=== PATIENT | female | born 1995 ===

== ENCOUNTER 2017-12-23 12:37 | Emergency (ER) | payer OTHER ==
[2017-12-23 13:15] VITALS: O2SAT 100
[2017-12-23] MEDS ORDERED: Sodium Chloride 0.9% 1,000 ML IV STA (14:18)
--- NOTE | 2017-12-23 14:27 | ED PDOC ---
HPI: Abdomen Time Seen by Provider: 12/23/17 13:53 Chief Complaint (Nursing): Abdominal Pain Chief Complaint (Provider): Abd pain History Per: Patient History/Exam Limitations: no limitations Onset/Duration Of Symptoms: Days (yesterday) Additional Complaint(s): Pt. with left lower abd pain and epigastric pain. Constant. No nausea, vomit, diarrhea, weakness dysuria, vaginal bleeding, back pain. No fever. No cough. No chest pain, dyspnea. Past Medical History Reviewed: Nursing Documentation, Vital Signs Vital Signs: Last Vital Signs Temp 97.6 F 12/23/17 13:12 Pulse 73 12/23/17 13:12 Resp 18 12/23/17 13:12 BP 100/57 L 12/23/17 13:12 Pulse Ox 100 12/23/17 13:12 - Medical History PMH: No Chronic Diseases - Surgical History Surgical History: No Surg Hx - Family History Family History: States: Unknown Family Hx - Allergies Allergies/Adverse Reactions: Allergies Allergy/AdvReac Type Severity Reaction Status Date / Time No Known Allergies Allergy Verified 12/23/17 13:12 Review of Systems ROS Statement: Except As Marked, All Systems Reviewed And Found Negative Gastrointestinal: Positive for: Abdominal Pain Physical Exam - Reviewed Nursing Documentation Reviewed: Yes Vital Signs Reviewed: Yes - Physical Exam Appears: Positive for: Non-toxic, No Acute Distress Head Exam: Positive for: ATRAUMATIC, NORMAL INSPECTION, NORMOCEPHALIC Skin: Positive for: Normal Color, Warm, DRY Eye Exam: Positive for: EOMI, Normal appearance, PERRL ENT: Positive for: Normal ENT Inspection Neck: Positive for: Normal, Painless ROM Cardiovascular/Chest: Positive for: Regular Rate, Rhythm Respiratory: Positive for: CNT, Normal Breath Sounds Gastrointestinal/Abdominal: Positive for: Soft, Tenderness (epigastric, left lower pelvic, mild.) Back: Positive for: Normal Inspection. Negative for: L CVA Tenderness, R CVA Tenderness Extremity: Positive for: Normal ROM Neurologic/Psych: Positive for: Alert, Oriented - Laboratory Results Result Diagrams: 12/23/17 15:40 12/23/17 15:40 - ECG O2 Sat by Pulse Oximetry: 100 - Progress ED Course And Treament: 1528: Pt. is preg. Found out here. Will work up accordingly. 1829: Stable. AAOx3. Pain free. Tolerated PO. Fu with pcp. Disposition - Clinical Impression Clinical Impression: Abdominal pain during - Patient ED Disposition Is Patient to be Admitted: No Counseled Patient/Family Regarding: Studies Performed, Diagnosis, Need For Followup - Disposition Referrals: [facility] [Outside] [facility] [Outside[facility] - 12/24/17 Disposition: Routine/Home Disposition Time: 18:00 Condition: STABLE Additional Instructions: Return if not better in 3 days. Instructions: Threatened Miscarriage Print Language: CHILEAN
[2017-12-23] MEDS ORDERED: Iohexol 240 (50 ml) ONE (15:11)
[2017-12-23] MEDS: Iohexol 240 (50 ml) PO ONE ×2 (15:13→15:27)
[2017-12-23 15:51] LABS: BASO % 0.4 % (0.0-2.0); EOS # 0.1 K/uL (0.0-0.7); EOS % 0.6 % (0.0-4.0); HEMOGLOBIN 12.5 g/dL (12.0-16.0); LYMPH # 2.1 K/uL (1.0-4.3); LYMPH % 23.2 % (20.0-40.0); MEAN CELL VOLUME 90.4 fl (81.0-99.0); MEAN CORPUSCULAR HEMOGLOBIN 29.9 pg (27.0-31.0); MEAN CORPUSCULAR HGB CONC 33.1 g/dL (33.0-37.0); MEAN PLATELET VOLUME 8.2 fl (7.2-11.7); MONO # 0.5 K/uL (0.0-0.8); MONO % 5.5 % (0.0-10.0); NEUT # 6.4 K/uL (1.8-7.0); NEUT % 70.3 % (50.0-75.0); NRBC % 0.1 % (0.0-0.0); RBC 4.17 Mil/uL (3.80-5.20); RED CELL DISTRIBUTION WIDTH 13.9 % (11.5-14.5); WHITE BLOOD COUNT 9.1 K/uL (4.8-10.8)
[2017-12-23 16:01] LABS: SQUAMOUS EPITHIAL 2 /hpf (0-5); URINE BACTERIA RARE (<OCC); URINE BILIRUBIN NEGATIVE (NEGATIVE); URINE BLOOD NEGATIVE (NEGATIVE); URINE CLARITY SLIGHTY-CLOUDY (Clear); URINE COLOR YELLOW (YELLOW); URINE GLUCOSE (UA) NEG (Normal); URINE LEUKOCYTE ESTERASE SMALL Leu/uL (Negative); URINE PROTEIN NEGATIVE (NEGATIVE); URINE UROBILINOGEN 0.2-1.0 mg/dL (0.2-1.0)
[2017-12-23 16:05] LABS: ALB/GLOB RATIO 1.4 (1.0-2.1); ALBUMIN 4.4 g/dL (3.5-5.0); ALT/SGPT 35 U/L (9-52); AST/SGOT 23 U/L (14-36); BLOOD UREA NITROGEN 8 mg/dl (7-17); CALCIUM 8.9 mg/dL (8.4-10.2); GFR NON-AFRICAN AMERICAN > 60; LIPASE 37 U/L (23-300)
--- NOTE | 2017-12-23 17:15 | US ---
Date of service: 12/23/2017 PROCEDURE: OB Pelvic Ultrasound HISTORY: preg and pain COMPARISON: None available. FINDINGS: UTERUS: Single Live intrauterine gestation. CRL measures 0.2 cm equivalent to 5 weeks and 5 days of gestational age. Gestational sac diameter measures 1.1 cm equivalent to 5 weeks and 1 day of gestational age. age (Ultrasound estimated): 5 weeks and 3 days Date of delivery (Ultrasound estimated) : 08/22/2018 Heart rate: 113 bpm. Janina-gestational hemorrhage: None. Uterus measures 11.5 x 5.5 x 6.4 cm. No mass CERVIX: Long and closed. No cervical abnormality seen. RIGHT OVARY: Measures 2.7 x 1.5 x 2.0 cm. No mass. Normal flow. LEFT OVARY: Measures 2.7 x 1.5 x 2.5 cm. No mass. Normal flow. FREE FLUID: None. OTHER FINDINGS: None. IMPRESSION: Single live intrauterine gestation with mean gestational age of 5 weeks and 3 days. The estimated date of delivery by ultrasound is 08/22/2018.
[2017-12-23 19:22] VITALS: BP 99/54; PULSE 80; RESP 16; TEMP 98.2
== END 2017-12-23 19:22 | disposition home or self-care (01) ==
LOC: H.ER 12:37
DX: O26.899 Other specified pregnancy related conditions, unspecified trimester (principal); Z3A.01 Less than 8 weeks gestation of pregnancy; O21.9 Vomiting of pregnancy, unspecified
CPT/HCPCS: 76817; 80053; 81003; 81025; 83690; 84702; 85025; 86850; 86900; 96360; 99283; J7030

== ENCOUNTER 2018-07-15 18:25 | Emergency (ER) | payer SELFPAY ==
[2018-07-15 19:36] VITALS: BMI 23.8
[2018-07-15] MEDS ORDERED: Lactated Ringer's 1,000 ML IV SCH (19:45)
[2018-07-16 11:46] VITALS: BP 110/70; PULSE 95; RESP 18; TEMP 97.8
== END 2018-07-15 21:00 | disposition home or self-care (01) ==
LOC: H.EROB2 18:25
DX: O26.93 Pregnancy related conditions, unspecified, third trimester (principal); R10.2 Pelvic and perineal pain; Z3A.35 35 weeks gestation of pregnancy
CPT/HCPCS: 96360; 99283; J7120